=== PATIENT | male | born 1935 | race Caucasian/White ===

== ENCOUNTER 2021-09-20 09:08 | Outpatient (CLI) | payer OTHER | END 2021-09-20 09:09 | disposition home or self-care (01) | LOC: CSHLAB 09:08 | PROVIDERS: ATTEND Internal Medicine Gastroenterology | DX: K21.9 Gastro-esophageal reflux disease without esophagitis (principal); Z20.822 Contact with and (suspected) exposure to COVID-19 | CPT/HCPCS: 87811 ==

== ENCOUNTER 2021-09-23 07:26 | Emergency (ER) | payer MEDICARE, OTHER ==
[2021-09-23] MEDS ORDERED: Nitroglycerin 0.4 MG TAB 1 EACH ONE (07:47)
[2021-09-23] MEDS ORDERED: Aspirin Chewable 81 MG TAB ONE (07:47)
[2021-09-23 07:50] LABS: #Basophils 0.1 10x3/uL (0.0-0.2); #Eosinphils 0.1 10x3/uL (0.0-0.5); #Monocytes 0.6 10x3/uL (0.0-1.1); #Neutrophils 6.4 10x3/uL (1.5-8.4); %Basophils 0.6 % (0.0-2.0); %Eosinophils 1.5 % (0.0-6.0); %Lymphocytes 17.3 % (18.0-47.0); %Monocytes 7.3 % (0.0-10.0); %Neutrophils 72.8 % (40.0-75.0); Hemoglobin 16.1 g/dL (13.5-17.5); Mean Corpuscular HGB CONC 34.2 g/dL (32.0-36.0); Mean Corpuscular Hemoglobin 30.4 pg (27.0-33.0); Mean Corpuscular Volume 88.9 fl (81.2-95.1); Platelet Count 202 10x3/uL (150-450); RBC Distribution Width 14.8 % (11.5-14.5); White Blood Cell (WBC) Count 8.8 10x3/uL (3.5-10.5)
[2021-09-23 08:08] LABS: ALT (SGPT) 18 U/L (8-55); AST (SGOT) 22 U/L (5-34); Albumin 4.2 g/dL (3.4-4.8); Alkaline Phosphatase 67 U/L (40-110); Anion Gap 13 mmol/L (10-20); BUN (Urea Nitrogen) 11 mg/dL (8.4-25.7); Bilirubin, Total 0.9 mg/dL (0.2-1.2); Calc. Creatinine Clearance 0 mL/min (70-130); Calcium 9.3 mg/dL (7.8-10.44); Carbon Dioxide 23 mmol/L (23-31); Chloride 107 mmol/L (98-107); Estimated GFR 86; Globulin 2.7 g/dL (2.4-3.5); Glucose 111 mg/dL (83-110); Lipase 9 U/L (8-78); Potassium 4.2 mmol/L (3.5-5.1); Protein, Total 6.9 g/dL (5.8-8.1); Sodium 139 mmol/L (136-145)
== END 2021-09-23 09:43 | disposition short-term general hospital (02) ==
LOC: CSHERS 07:26
DX: I24.9 Acute ischemic heart disease, unspecified (principal); I10 Essential (primary) hypertension; E78.5 Hyperlipidemia, unspecified; E78.00 Pure hypercholesterolemia, unspecified
CPT/HCPCS: 71045; 80053; 83690; 84484; 85025; 93005; 93010; J2001; J2704; J3010

== ENCOUNTER → 2021-09-23 | Day surgery (SDC) | payer MEDICARE, OTHER ==
[2021-09-21 09:41] VITALS: BMI 23.0
[~2021-09-23] MED LIST: Fentanyl 100 MCG/2 ML VIAL ONE; Lidocaine 2% PF 100 mg/5 ml Syringe ONE; PROPOFOL 0 ML ONE; PROPOFOL 20 ML ONE
== END ==
LOC: CSHSDC 06:24
PROVIDERS: ATTEND Internal Medicine Gastroenterology
DX: K21.9 Gastro-esophageal reflux disease without esophagitis (principal); K22.70 Barrett's esophagus without dysplasia; I10 Essential (primary) hypertension; E78.5 Hyperlipidemia, unspecified; E03.9 Hypothyroidism, unspecified; I48.0 Paroxysmal atrial fibrillation; N40.0 Benign prostatic hyperplasia without lower urinary tract symptoms; I25.10 Atherosclerotic heart disease of native coronary artery without angina pectoris; F03.90 Unspecified dementia, unspecified severity, without behavioral disturbance, psychotic disturbance, mood disturbance, and anxiety; D69.2 Other nonthrombocytopenic purpura; Z20.822 Contact with and (suspected) exposure to COVID-19; Z79.82 Long term (current) use of aspirin; Z79.899 Other long term (current) drug therapy; Z95.1 Presence of aortocoronary bypass graft; Z96.651 Presence of right artificial knee joint

== ENCOUNTER 2021-10-04 13:16 | Outpatient (CLI) | payer MEDICARE, OTHER | END 2021-10-04 13:17 | disposition home or self-care (01) | LOC: CSHLAB 13:16 | PROVIDERS: ATTEND Internal Medicine Gastroenterology | DX: Z20.822 Contact with and (suspected) exposure to COVID-19 (principal); K21.9 Gastro-esophageal reflux disease without esophagitis | CPT/HCPCS: 87811 ==

== ENCOUNTER 2021-10-07 07:28 | Day surgery (SDC) | payer MEDICARE, OTHER ==
[2021-10-05 13:31] VITALS: BMI 23.0
[~2021-10-07 07:28] MED LIST changes: -Fentanyl 100 MCG/2 ML VIAL ONE; +Ketamine 50 MG/ML (10ML VIAL) ONE; -Lidocaine 2% PF 100 mg/5 ml Syringe ONE; -PROPOFOL 0 ML ONE; -PROPOFOL 20 ML ONE
[2021-10-07] MEDS ORDERED: Lidocaine 1% MPF 2 ML VIAL ONE (08:26)
[2021-10-07] MEDS ORDERED: PROPOFOL 40 ML ONE (09:24)
== END 2021-10-07 10:41 | disposition home or self-care (01) ==
LOC: CSHSDC 07:28
PROVIDERS: ATTEND Internal Medicine Gastroenterology
PROC: 0DB58ZX Excision of Esophagus, Via Natural or Artificial Opening Endoscopic, Diagnostic (ICD-10-PCS; principal; 2021-10-07)
PROC: 0DB38ZX Excision of Lower Esophagus, Via Natural or Artificial Opening Endoscopic, Diagnostic (ICD-10-PCS; 2021-10-07)
DX: K22.70 Barrett's esophagus without dysplasia (principal); K21.00 Gastro-esophageal reflux disease with esophagitis, without bleeding; K44.9 Diaphragmatic hernia without obstruction or gangrene; E78.5 Hyperlipidemia, unspecified; E03.9 Hypothyroidism, unspecified; N40.0 Benign prostatic hyperplasia without lower urinary tract symptoms; Z86.010 Personal history of colon polyps; Z95.1 Presence of aortocoronary bypass graft; Z98.890 Other specified postprocedural states; Z20.822 Contact with and (suspected) exposure to COVID-19
CPT/HCPCS: 88305; J2704

== ENCOUNTER 2021-12-30 06:02 | Inpatient (IN) | payer MEDICARE, OTHER ==
[2021-12-29 03:09] VITALS: BMI 23.7
[2021-12-30] MEDS ORDERED: Bupivacaine PF 0.5% 30 ML VIAL ONE (06:43)
[2021-12-30] MEDS ORDERED: Ondansetron PF 4 MG/2 ML Vial ONE (07:11)
[2021-12-30] MEDS ORDERED: PROPOFOL 20 ML ONE (07:11)
[2021-12-30] MEDS ORDERED: Rocuronium Bromide 10 MG/ML (10ML VIAL) ONE (07:11)
[2021-12-30] MEDS ORDERED: Dexamethasone 4 mg/ml Vial ONE (07:11)
[2021-12-30] MEDS ORDERED: Fentanyl 100 MCG/2 ML VIAL ONE ×3 (07:11→10:57)
[2021-12-30] MEDS ORDERED: Lidocaine 1% PF 5 ML VIAL ONE (07:11)
[2021-12-30] MEDS ORDERED: SUGAMMADEX SODIUM 200 MG/2 ML VIAL ONE (07:16)
[2021-12-30] MEDS ORDERED: ceFOXitin 1 GM VIAL ONE (07:24)
[2021-12-30] MEDS ORDERED: ePHEDrine Sulfate 50 MG/10 ML VIAL ONE (07:59)
[2021-12-30] MEDS ORDERED: Ondansetron PF 4 MG/2 ML Vial IVP PRN (10:39)
[2021-12-30] MEDS ORDERED: Morphine 2 MG/ML VIAL SLOW IVP PRN (10:39)
[2021-12-30] MEDS ORDERED: HYDROcodone/Acetaminophen 5/325 mg Tablet PO PRN (10:43)
[2021-12-30] MEDS ORDERED: HYDROmorphone 0.5 MG/0.5 ML SYRINGE ONE ×3 (11:00→11:41)
[2021-12-30] MEDS: Acetaminophen 325 MG TAB PO PRN (15:04)
[2021-12-30] MEDS: D5 1/2 NS w/20 mEq KCL 1,000 ML IV SCH (15:33)
[2021-12-30] MEDS ORDERED: Promethazine HCl 25 MG in Sodium Chloride 0.9% 50 ML IVPB SCH (20:30)
[2021-12-30] MEDS: Tamsulosin HCl 0.4 MG CAP PO SCH (20:53)
[2021-12-30] MEDS ORDERED: Enoxaparin Sodium 30 MG/0.3 ML SYRINGE SC SCH (21:00)
[2021-12-30] MEDS ORDERED: Temazepam 15 MG CAP PO SCH (21:30)
[2021-12-30] MEDS ORDERED: Atorvastatin Calcium 20 MG TAB PO SCH (21:30)
[2021-12-30] MEDS ORDERED: Dutasteride 0.5 MG CAP PO SCH (21:30)
[2021-12-30] MEDS ORDERED: Lisinopril 2.5 MG TAB PO SCH (21:30)
[2021-12-30] MEDS: Ketorolac Tromethamine 30 MG/ML VIAL IVP SCH (22:11)
[2021-12-31] MEDS: D5 1/2 NS w/20 mEq KCL 1,000 ML IV SCH (01:44)
[2021-12-31] MEDS: Ketorolac Tromethamine 30 MG/ML VIAL IVP SCH ×2 (06:33→14:01)
[2021-12-31] MEDS: Acetaminophen 325 MG TAB PO PRN (08:16)
[2021-12-31] MEDS: Tamsulosin HCl 0.4 MG CAP PO SCH (08:17)
[2021-12-31 12:11] VITALS: BP 145/68; TEMP 98.9
[2022-01-02] MEDS ORDERED: TETANUS, DIPHTHERIA TOX,ADULT (TDVAX) 0.5 ML VIAL IM ONE (10:39)
== END 2021-12-31 16:38 | disposition home or self-care (01) | DRG 331 ==
LOC: CSHSDC 06:02 → CSHTELE 14:06
PROVIDERS: ADMIT Surgery; ATTEND Surgery
PROC: 0DB84ZZ Excision of Small Intestine, Percutaneous Endoscopic Approach (ICD-10-PCS; principal; 2021-12-30)
PROC: 8E0W4CZ Robotic Assisted Procedure of Trunk Region, Percutaneous Endoscopic Approach (ICD-10-PCS; 2021-12-30)
DX: D3A.019 Benign carcinoid tumor of the small intestine, unspecified portion (principal); Z20.822 Contact with and (suspected) exposure to COVID-19; E78.00 Pure hypercholesterolemia, unspecified; R19.09 Other intra-abdominal and pelvic swelling, mass and lump; I11.9 Hypertensive heart disease without heart failure; Z98.890 Other specified postprocedural states; Z79.890 Hormone replacement therapy; Z79.82 Long term (current) use of aspirin; Z79.899 Other long term (current) drug therapy; Z82.49 Family history of ischemic heart disease and other diseases of the circulatory system
CPT/HCPCS: 87811; 88307; 88342; 88360; 90714; A4649; C1776; J0694; J1100; J1170; J1650; J1885; J2405; J2550; J2704; J3010; J3480; S0020